=== PATIENT | male | born 1965 | race Caucasian/White ===

== ENCOUNTER 2018-06-13 07:39 | Day surgery (SDC) | payer OTHER ==
[~2018-06-13] VITALS: Ht 172.7 cm; Wt 107.0 kg
[2018-06-13] VITALS (15 sets, daily range): BP systolic 129–190; BP diastolic 66–110; PULSE 56–88; RESP 10–22; Ht 172.7 cm; Wt 107.0 kg
[~2018-06-13 07:39] MED LIST: CEFAZOLIN 1 GM INJ ONE; LIDOCAINE 2% (SDV) 5 ML INJ ONE; SEVOFLURANE 15 MIN ONE
[2018-06-13] MEDS ORDERED: METO25TA4 PO (08:35)
[2018-06-13] MEDS ORDERED: AMLO-147 PO (08:35)
[2018-06-13] MEDS ORDERED: METF-849 PO (08:35)
[2018-06-13] MEDS ORDERED: LISI40TA3 PO (08:35)
[2018-06-13] MEDS ORDERED: GLIP2.5T14 PO (08:35)
[2018-06-13] MEDS ORDERED: LINA5TAB PO (08:35)
[2018-06-13] MEDS ORDERED: ROPIVACAINE 0.5 % 30 ML VIAL ONE (09:47)
--- NOTE | 2018-06-13 09:51 | PREAC ---
Date/Time of Note Date/Time of Note DATE: 06/13/18 TIME: 09:49 Anesthesia Eval and Record Evaluation Time Pre-Procedure Interview DATE: 06/13/18 TIME: 09:49 Age 52 Sex male NPO: 8 hrs Preoperative diagnosis right knee meniscal tear Planned procedure right knee arthroscopy, meniscectomy Past Medical History Past Medical History: Includes Cardio: HTN, Dyslipidemia Endo: Diabetes GI: Obesity Surgery & Anesthesia Issues No known issue Meds Anticoagulation: No Beta Karli within 24 hr: No Reason Beta Karli not given: Pt. not on B-Karli Reported Medications Lisinopril* (Lisinopril*) 40 Mg Tablet, 40 MG PO DAILY, #30 TAB 06/13/18 Linagliptin (TRADJENTA) 5 Mg Tablet, 5 MG PO DAILY, TAB 06/13/18 Amlodipine Besylate* (Amlodipine Besylate*) 10 Mg Tablet, 10 MG PO DAILY, #30 TAB 06/13/18 Metoprolol Tartrate* (Lopressor*) 25 Mg Tablet, 25 MG PO BID, #60 TAB 06/13/18 Glipizide XL* (Glipizide XL*) 2.5 Mg Tab.er.24, 2.5 MG PO BID, TAB 06/13/18 Metformin* (Glucophage*) 500 Mg Tab, 1000 MG PO WITH BREAKFAST DINNE, #30 TAB 06/13/18 Meds reviewed: Yes Allergies Coded Allergies: No Known Drug Allergies (Verified Allergy, Unknown, 06/13/18) Allergies Reviewed: Yes Labs/Studies Labs Reviewed: Reviewed by anesthesiologist test: N/A Pre-procedure Exam Last vitals Vital Signs Date Temp Pulse Resp B/P (MAP) Pulse Ox O2 O2 Flow FiO2 Time Delivery Rate 06/13/18 98.4 66 16 129/74 94 Room Air 08:25 (92) Airway: Adequate mouth opening, Adequate thyromental dist Mallampati: Mallampati II Teeth: Normal Lung: Normal Heart: Normal ASA Physical Status ASA physical status: 2 Emergency: None Planned Anesthetic General/MAC: LMA Planned Pain Management Parenteral pain med Pre-operative Attestations Prior to commencing anesthesia and surgery, the patient was re-evaluated, there was verification of: *The patient's identity *The results of appropriate recent lab work and preoperative vital signs *The above evaluation not changing prior to induction *Anesthetic plan, risk benefits, alternative and complications discussed with patient/family; questions answered; patient/family understands, accepts and wishes to proceed. JESSICA BILLINGS Jun 13, 2018 09:51
[2018-06-13] MEDS ORDERED: PROPOFOL 20 ML ONE (09:55)
[2018-06-13] MEDS ORDERED: ROCURONIUM 50 MG INJ ONE (09:57)
[2018-06-13] MEDS ORDERED: ONDANSETRON 4 MG INJ ONE ×2 (10:38→11:35)
[2018-06-13] MEDS ORDERED: DEXAMETHASONE 4 MG/ML 5 ML INJ ONE (10:38)
[2018-06-13] MEDS ORDERED: NEOSTIGMINE 3 MG/3 ML SYRINGE ONE (11:11)
[2018-06-13] MEDS ORDERED: GLYCOPYRROLATE 0.4 MG INJ ONE (11:11)
[2018-06-13] MEDS ORDERED: SOD CHLORIDE 0.9% 1,000 ML IV SCH (11:32)
--- NOTE | 2018-06-13 11:34 | PAC ---
Date/Time of Note Date/Time of Note DATE: 06/13/18 TIME: 11:34 Post-Anesthesia Notes Post-Anesthesia Note Last documented vital signs Vital Signs Date Temp Pulse Resp B/P (MAP) Pulse Ox O2 O2 Flow FiO2 Time Delivery Rate 06/13/18 98.4 66 16 129/74 94 Room Air 1134 (92) Activity: WNL Respiratory function: WNL Cardiovascular function: WNL Mental status: Baseline Pain reasonably controlled: Yes Hydration appropriate: Yes Nausea/Vomiting absent: Yes JESSICA BILLINGS Jun 13, 2018 11:34
[2018-06-13] MEDS ORDERED: DIPHENHYDRAMINE 50 MG INJ ONE (11:35)
--- NOTE | 2018-06-13 11:35 | OPPN ---
Date/Time of Note Date/Time of Note DATE: 06/13/18 TIME: 11:34 Operative Report Preoperative Diagnosis Right knee partial medial and lateral meniscal tear Postoperative Diagnosis right knee grade three lateral meniscal tear, grade 2 medial meniscal tear, chondromalacia Operation/Procedure Performed arthroscopy of the right knee, with partial lateral meniscectomy and chondroplasty Surgeon see signature line real estate executive assistant Raquel Perry PA-C Anesthesia: general Estimated blood loss: minimal Transfusion Required none Specimen none Grafts/Implants none Complications none JONAS HOUSTON MD Jun 13, 2018 11:35
[2018-06-13] MEDS ORDERED: hydrALAzine 20 MG INJ ONE (11:50)
[2018-06-13] MEDS ORDERED: FENTAnyl 50 MCG/ML VIAL IV PRN ×3 (12:00)
[2018-06-13] MEDS ORDERED: DIPHENHYDRAMINE 50 MG INJ IV PRN (12:00)
[2018-06-13] MEDS ORDERED: OXYCODONE/ACETAMINOPHEN (5/325) TAB PO PRN ×4 (12:00)
[2018-06-13] MEDS ORDERED: HYDROmorphONE 1 MG/5 ML IV SYRINGE IV PRN ×3 (12:00)
[2018-06-13] MEDS ORDERED: KETOROLAC 30 MG INJ IV PRN (12:00)
[2018-06-13] MEDS ORDERED: EPHEDrine SULFATE 50 MG/5 ML SYG IV PRN (12:00)
[2018-06-13] MEDS ORDERED: MIDAZOLAM 1 MG/ML 2 ML INJ IV PRN (12:00)
[2018-06-13] MEDS ORDERED: LABETALOL HCL 20MG INJ IV PRN (12:00)
[2018-06-13] MEDS ORDERED: ALBUTEROL 0.083% (NEB) 2.5 MG/3 ML AMP HHN PRN (12:00)
[2018-06-13] MEDS ORDERED: hydrALAzine 20 MG INJ IV PRN (12:00)
[2018-06-13] MEDS ORDERED: MEPERIDINE 25 MG INJ IV PRN (12:00)
[2018-06-13] MEDS ORDERED: METOCLOPRAMIDE 10 MG INJ IV PRN (12:00)
[2018-06-13] MEDS ORDERED: morphine 2 MG INJ IV PRN (12:00)
[2018-06-13] MEDS ORDERED: ONDANSETRON 4 MG INJ IV PRN ×2 (12:00)
--- NOTE | 2018-06-13 14:46 | OPR ---
DATE OF OPERATION: 06/13/2018 PREOPERATIVE DIAGNOSES: Tear of medial meniscus, right knee. POSTOPERATIVE DIAGNOSES: 1. Complex tear with horizontal cleavage component medial meniscus, right knee. 2. 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 3. Chondromalacia grade I to II of the medial and lateral tibial plateau. 4. 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 5. Large pathologic suprapatellar plica. OPERATIONS PERFORMED: 1. Arthroscopy, right knee. 2. Partial medial meniscectomy. 3. Excision, suprapatellar plica. 4. Chondroplasty patellofemoral joint. SURGEON: Jonas Duong MD SR. LOGISTICS ANALYST: Raquel Perry PA-C ANESTHESIA: General. TOURNIQUET TIME: Zero. DESCRIPTION OF PROCEDURE: The patient was taken to the operating room and placed in supine position. Satisfactory general anesthesia was administered, 2 grams Ancef were given intravenously. The right knee was prepped and draped in the usual manner. Exam under anesthesia revealed full range of motion, AP drawer and Shantel 1+, pivot shift negative, but no varus-valgus instability. Standard arthroscopic portals were used. Undersurface of the patella had some grade I to II chondromalacia. Trochlea had grade I chondromalacia. There was a large abnormal thickening suprapatellar plica. The medial gutter was intact. Lateral gutter had no loose bodies. Popliteus was intact. Lateral compartment was entered. There was some superficial fraying of the mid zone dorsal aspect of the lateral meniscus, but there was no through and through tears. Posterior and anterior horns were intact. The anterior and posterior cruciates were intact at origins and insertions. The medial compartment was entered. There was grade II to III chondromalacia along the weightbearing surface of the medial femoral condyle. There was 1 small area of grade IV chondromalacia on the anterior portion of the weightbearing surface of the medial femoral condyle and grade I to II chondromalacia along the medial tibial plateau. There was a complex horizontal cleavage tear of the posterior half medial of medial meniscus. Probe was inserted. The tear was palpated. Using curved and straight baskets, the tear was saucerized from the mid zone and then cut back to the posterior horn. Shaver was used to smooth and contour the edges further. The inferior leaf of the horizontal cleavage tear was removed. Superior leaf was left intact, but cut back to a stable rim. Once stable rim has been achieved, a shaver was used to smooth and contour the edges and removed all loose fragments. A chondroplasty was performed along the medial compartment, medial femoral condyle. The rim was very stable when we were done. The anterior and posterior cruciates that were palpated were intact. Lateral meniscus was debrided dorsally but with partial thickness and we did not think anything should be done. Otherwise, the rest of the meniscus was intact. Chondroplasty was performed along the patella. Suprapatellar plica was excised. The knee was irrigated clear. Wounds were closed with Steri-Strips and 0.5% ropivacaine. Compression dressings were applied. The patient was brought to recovery room in stable condition. Interprocedure sponge and needle count was correct. The patient tolerated procedure well. Dictated By: JONAS SANTO/LEROY Conf#: [id number] DID#: [id number] PRATIMA
== END 2018-06-13 13:55 | disposition home or self-care (01) ==
LOC: SDS 07:39
PROVIDERS: ATTEND Orthopaedic Surgery
DX: S83.231D Complex tear of medial meniscus, current injury, right knee, subsequent encounter (principal); X58.XXXD Exposure to other specified factors, subsequent encounter; M94.261 Chondromalacia, right knee; E11.9 Type 2 diabetes mellitus without complications; I10 Essential (primary) hypertension
CPT/HCPCS: 29881; 82962; J0360; J0690; J1100; J1200; J2405; J2710; J2795; J3010